=== PATIENT | male | born 1990 | race Caucasian/White ===

== ENCOUNTER 2018-02-03 11:33 | Emergency (ER) | payer OTHER ==
[2018-02-03] MEDS ORDERED: Sodium Chloride 0.9% 10 ML Syringe FLUSH PRN (11:54)
[2018-02-03] MEDS ORDERED: Ketorolac 30 MG/ML SDV IVPUSH ONE (11:55)
[2018-02-03] MEDS ORDERED: diphenhydrAMINE 50 MG/ML SDV IVPUSH ONE (11:55)
[2018-02-03] MEDS ORDERED: Ondansetron 4 MG/2 ML SDV IV ONE (11:55)
[2018-02-03] MEDS ORDERED: Sodium Chloride 0.9% 1,000 ML IV ONE (11:55)
[2018-02-03] MEDS ORDERED: cefTRIAXone 1 GM Vial IVPUSH ONE (12:21)
[2018-02-03 12:25] LABS: ANION GAP 13.6; CHLORIDE,CL 103 mmol/L (101-111); SODIUM,NA 136 mmol/L (135-145)
--- NOTE | 2018-02-03 12:57 | EDM.PDOC ---
Scribed by Ene Tarango 02/03/18 1200 for Mao Patel MD ED HPI GENERAL MEDICAL PROBLEM - General Chief Complaint: Headache Stated Complaint: ELEVATED BLOOD PRESSURE Time Seen by Provider: 02/03/18 11:40 Source of Information: Reports: Patient, RN, RN Notes Reviewed History Limitations: Reports: No Limitations - History of Present Illness INITIAL COMMENTS - FREE TEXT/NARRATIVE: Patient presents to ER with complaint of that he began to ill last night with nausea, mild ore throat, frontal headache and generalized body aches. He has not vomited, but does not feel that he could keep food or medications down. He admits to photosensitivity that makes the headache worse. Denies abdominal pain , cough or rash. Onset Date: 02/02/18 Duration: Getting Worse Location: Reports: Generalized Quality: Reports: Ache Severity: Severe Improves with: Reports: None Worsens with: Reports: None Associated Symptoms: Reports: No Other Symptoms Frontal Head Pain Score (Numeric/FACES): 8 - Related Data Allergies Allergy/AdvReac Type Severity Reaction Status Date / Time No Known Allergies Allergy Verified 02/03/18 11:38 Home Meds: Home Meds . [No Known Home Meds] 02/03/18 [History] Past Medical History - Past Health History Medical/Surgical History: Denies Medical/Surgical History Social & Family History - Family History Family Medical History: Noncontributory - Living Situation & Occupation Living situation: Reports: , with Family Occupation: Employed ED ROS GENERAL - Review of Systems Review Of Systems: ROS reveals no pertinent complaints other than HPI. - Physical Exam Exam: See Below Exam Limited By: No Limitations General Appearance: Alert, WD/WN, No Apparent Distress Eye Exam: Bilateral Eye: Normal Inspection Ears: Normal Canal, Hearing Grossly Normal, Other (Rt TM bulging, dull, erythematous, Left TM nl) Nose: Normal Inspection, Normal Mucosa, No Blood Throat/Mouth: Normal Lips, Normal Voice, No Airway Compromise, Other ( pharyngeal erythema) Head Exam: Atraumatic, Normocephalic Neck: Supple, Full Range of Motion, Lymphadenopathy (L), Lymphadenopathy (R) Respiratory/Chest: No Respiratory Distress, Lungs Clear, Normal Breath Sounds, No Accessory Muscle Use, Chest Non-Tender Cardiovascular: Regular Rate, Rhythm GI/Abdominal: Normal Bowel Sounds, Soft, Non-Tender, No Distention (Male) Exam: Deferred Rectal (Males) Exam: Deferred Neuro Exam (Abbreviated): Alert, Oriented, CN II-XII Intact, Normal Cognition, Normal Gait, No Motor/Sensory Deficits Back Exam: Normal Inspection Extremities: Normal Inspection, Normal Range of Motion, Non-Tender, No Pedal Edema, Normal Capillary Refill Psychiatric: Normal Affect, Normal Mood Skin Exam: Warm, Dry, Intact, Normal Color, No Rash Course - Vital Signs Last Recorded V/S: Last Vital Signs Temp 36.7 C 02/03/18 11:39 Pulse 82 02/03/18 11:39 Resp 16 02/03/18 11:39 BP 157/85 H 02/03/18 11:39 Pulse Ox 97 02/03/18 11:39 - Orders/Labs/Meds Orders: Active Orders 24 hr Category Date Time Status Peripheral IV Care [RC] . DIRECTED Care 02/03/18 11:55 Active CULTURE STREP A CONFIRMATION [] Stat Lab 02/03/18 11:55 Results STREP SCRN A RAPID W CULT CONF [] Stat Lab 02/03/18 11:55 Results Sodium Chloride 0.9% [Normal Saline] 1,000 ml Med 02/03/18 11:55 Active IV .BOLUS Sodium Chloride 0.9% [Saline Flush] Med 02/03/18 11:54 Active 10 ml FLUSH ASDIRECTED PRN Peripheral IV Insertion Adult [OM.PC] Stat Oth 02/03/18 11:54 Ordered Medication Orders Sodium Chloride (Normal Saline) 1,000 mls @ 999 mls/hr IV .BOLUS ONE Stop: 02/03/18 12:55 Last Admin: 02/03/18 12:05 Dose: 999 mls/hr Sodium Chloride (Saline Flush) 10 ml FLUSH ASDIRECTED PRN PRN Reason: Keep Vein Open Last Admin: 02/03/18 11:55 Dose: 10 ml Labs: Laboratory Tests 02/03/18 02/03/18 02/03/18 Range/Units 11:58 11:58 11:58 WBC 7.7 (5.0-10.0) 10^3/uL RBC 5.31 (4.6-6.2) 10^6/uL Hgb 16.4 (14.0-18.0) g/dL Hct 47.5 (40.0-54.0) % MCV 89.5 (80-100) fL MCH 30.9 (27.0-34.0) pg MCHC 34.5 (33.0-35.0) g/dL Plt Count 129 L (150-450) 10^3/uL Neut % (Auto) 80.2 H (42.2-75.2) % Lymph % (Auto) 12.3 L (20.5-50.1) % [place] % (Auto) 7.2 (2-8) % Eos % (Auto) 0.0 L (1.0-3.0) % Baso % (Auto) 0.3 (0.0-1.0) % Sodium 136 (135-145) mmol/L Potassium 3.6 (3.6-5.0) mmol/L Chloride 103 (101-111) mmol/L Carbon Dioxide 23.0 (21.0-31.0) mmol/L Anion Gap 13.6 BUN 11 (7-18) mg/dL Creatinine 0.9 (0.6-1.3) mg/dL Est Cr Clr Drug Dosing 118.22 mL/min Estimated GFR (MDRD) > 60 BUN/Creatinine Ratio 12.22 Glucose 113 H (74-105) mg/dL Calcium 9.0 (8.4-10.2) mg/dl Total Bilirubin 1.0 (0.2-1.0) mg/dL AST 65 H (10-42) IU/L ALT 178 H (10-60) IU/L Alkaline Phosphatase 77 (42-121) IU/L C-Reactive Protein 0.7 (0.0-1.3) mg/dL Total Protein 7.9 (6.7-8.2) g/dl Albumin 4.6 (3.2-5.5) g/dl Globulin 3.3 Albumin/Globulin Ratio 1.39 Rapid strep: Negative. Meds: Medications Generic Name Dose Route Start Last Admin Trade Name Freq PRN Reason Stop Dose Admin Sodium Chloride 1,000 mls @ 999 mls/hr 02/03/18 11:55 02/03/18 12:05 Normal Saline IV 02/03/18 12:55 999 mls/hr .BOLUS ONE Administration Sodium Chloride 10 ml 02/03/18 11:54 02/03/18 11:55 Saline Flush FLUSH 10 ml ASDIRECTED PRN Administration Keep Vein Open Discontinued Medications Generic Name Dose Route Start Last Admin Trade Name Kristofer PRN Reason Stop Dose Admin Ceftriaxone Sodium 1 gm 02/03/18 12:21 02/03/18 12:33 Rocephin IVPUSH 02/03/18 12:22 1 gm ONETIME ONE Administration Diphenhydramine HCl 25 mg 02/03/18 11:55 02/03/18 12:10 Benadryl IVPUSH 02/03/18 11:56 25 mg ONETIME ONE Administration Ketorolac Tromethamine 30 mg 02/03/18 11:55 02/03/18 12:12 Toradol IVPUSH 02/03/18 11:56 30 mg ONETIME ONE Administration Ondansetron HCl 4 mg 02/03/18 11:55 02/03/18 12:10 Zofran IV 02/03/18 11:56 4 mg ONETIME ONE Administration Departure - Departure Time of Disposition: 12:51 Disposition: Home, Self-Care 01 Condition: Good Clinical Impression: Acute viral syndrome, Elevated liver enzymes Acute headache Qualifiers: Headache type: unspecified Intractability: not intractable Qualified Code(s): R51 - Headache Otitis media Qualifiers: Otitis media type: suppurative Chronicity: acute Laterality: right Recurrence: not specified as recurrent Spontaneous tympanic membrane rupture: without spontaneous rupture Qualified Code(s): H66.001 - Acute suppurative otitis media without spontaneous rupture of ear drum, right ear - Discharge Information *PRESCRIPTION DRUG MONITORING PROGRAM REVIEWED*: No *COPY OF PRESCRIPTION DRUG MONITORING REPORT IN PATIENT YURIY: No Instructions: Otitis Media, Adult, General Headache Without Cause, [id number] , Viral Illness, Adult, Fatty Liver Forms: ED Department Discharge Additional Instructions: Rx: Promethazine 25mg *Do not drive while under the influence of this medication. Rx: Augmentin 875mg Rest, drink plenty of water, and diet as tolerated. May use over the counter Ibuprofen (Motrin/Advil) and/or Acetaminophen (Tylenol ) as needed for headache or pain. Follow directions on label for dosage and precautions. Follow up in clinic if not improving as expected in 3 to 5 days. Have your clinic doctor recheck your liver enzymes in 1 to 2 weeks. - My Orders Last 24 Hours: My Active Orders 02/03/18 11:54 Sodium Chloride 0.9% [Saline Flush] 10 ml FLUSH ASDIRECTED PRN Peripheral IV Insertion Adult [OM.PC] Stat 02/03/18 11:55 Peripheral IV Care [RC] . DIRECTED CULTURE STREP A CONFIRMATION [RM] Stat STREP SCRN A RAPID W CULT CONF [RM] Stat Sodium Chloride 0.9% [Normal Saline] 1,000 ml IV .BOLUS - Assessment/Plan Last 24 Hours: My Active Orders 02/03/18 11:54 Sodium Chloride 0.9% [Saline Flush] 10 ml FLUSH ASDIRECTED PRN Peripheral IV Insertion Adult [OM.PC] Stat 02/03/18 11:55 Peripheral IV Care [RC] . DIRECTED CULTURE STREP A CONFIRMATION [RM] Stat STREP SCRN A RAPID W CULT CONF [RM] Stat Sodium Chloride 0.9% [Normal Saline] 1,000 ml IV .BOLUS I have read and agree with the documentation that has been completed regarding this visit. By signing this record, I attest that the documentation was completed in my physical presence and is an accurate record of the encounter.
== END 2018-02-03 13:17 | disposition home or self-care (01) ==
LOC: DL.ED 11:33
DX: H66.001 Acute suppurative otitis media without spontaneous rupture of ear drum, right ear (principal); B34.9 Viral infection, unspecified; R74.8 Abnormal levels of other serum enzymes
CPT/HCPCS: 36415; 80053; 85025; 86140; 87081; 87430; 96361; 96374; 96375; 99284; J0696; J1200; J1885; J2405; J7030; J7050